=== PATIENT | female | born 1970 | race Caucasian/White ===

== ENCOUNTER 2025-05-10 11:56 | Emergency (ER) | payer OTHER, SELFPAY ==
[2025-05-10 11:57] VITALS: BP 171/102
[2025-05-10 12:37] VITALS: BP 138/96
--- NOTE | 2025-05-10 12:38 | ED.GENMED ---
History of Present Illness
<Erica Styles PA-C - Last Filed: 05/10/25 15:48>
General
Chief Complaint: Anxiety
Source: patient
Exam Limitations: none
Time Seen by Provider: 05/10/25 12:06
Nursing documentation reviewed up to this point in time: agreed with
History of Present Illness
History of Present Illness:
Patient is a 55-year-old female postmenopausal 3 years, history of anxiety and depression on Paxil and BuSpar for years presents for the feeling of jitteriness and anxiety over the last week. Patient says it came out of the blue and she is not
really sure what triggered the symptoms. She feels very uneasy and like she is 'shaking from the inside out.' Patient says when this began she thought maybe it could be related to vaping nicotine, so she did stop doing that about 5 days ago.
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 Patient had no significant suicidal thoughts or significant depression but was
feeling very anxious. They gave her IV fluids, IV nausea medication because patient had complained she was feeling like an upset stomach, and an oral Ativan. She says they checked her blood work but did not tell her that there were any
abnormalities. She did feel temporarily better but by the time she got home she had the same jittery feeling again. Her heart rate was never elevated to a significant rate that she knows of, she is not having any chest pain. She does feel
somewhat short of breath with the anxious feeling but does not have pleuritic pain. She has never had a DVT or PE.
Patient has tried calling her family doctor as well as multiple therapist or psychiatrist to get an appointment but was unable to do so until at least May. Patient says she cannot wait that long feeling this way. She also does use marijuana,
she has a medical card and vapes that. She is not sure if anything changed but she gets it from a dispensary and has never had any reactions before. She has not made any changes to her BuSpar or her Paxil.
Patient is not really eating, she is not sleeping because of all of this.
Review of Systems
<Erica Styles PA-C - Last Filed: 05/10/25 15:48>
Review of Systems
Allergies reviewed?: Yes
All Other Systems: Not applicable
Phy Exam
<Erica Styles PA-C - Last Filed: 05/10/25 15:48>
Physical Exam
Physical Exam:
GENERAL: Alert , visibly anxious
EYE: pupils equal and reactive
NECK: Supple
ENT: o/p clr, mmm.
CARDIAC: Regular rate and rhythm .no tachycardia
LUNGS: Clear breath sounds bilaterally, no acute respiratory distress, no wheezes/rales/rhonchi
ABDOMEN: Soft, without focal tenderness, no r/g, no cvat, normal bowel sounds
NEUROLOGICAL: Alert and oriented, no focal neuro deficits
SKIN: Warm and dry, skin intact.
MUSCULOSKELETAL: No edema, well perfused. neg kai's sign
PSYCH: Normal and appropriate interaction. anxious; no SI; not tearful
Course
<Erica Styles PA-C - Last Filed: 05/10/25 15:48>
Orders/Labs/Results
Orders:
Orders
05/10/25 12:27
0.9% Sodium Chloride 1000 ml [Nss] 1,000 ml IV BOLUS
Alprazolam [Xanax] 0.5 mg PO NOW STA
05/10/25 12:28
Electrocardiogram (*1) Urgent
Reason for Study: Palpitations
EKG- Treatment ONCE
05/10/25 12:30
Crisis Consult Urgent
Reason for Consult: anxiety
05/10/25 12:31
CPK [Creatine Phosphokinase] Urgent
Complete Blood Count/With Diff Urgent
Comprehensive Metabolic Panel Urgent
Lipase Urgent
Comment: ADD ON
TSH Reflex To Free T4 Urgent
05/10/25 14:21
Ondansetron Injectable [Zofran] 4 mg IV NOW STA
05/10/25 14:24
diazePAM [Valium Injection] 5 mg IV NOW STA
05/10/25 14:34
Add On- LAB Urgent
Tests Added?: LIPASE
Abnormal Lab Results
05/10/25
12:31
MCV 80.8 L fL
(81.0-99.0)
Glucose 113 H mg/dl
(70-99)
05/10/25 12:31
05/10/25 12:31
Vital Signs
Initial and Last Documented VS:
Initial Vital Signs
Temp Pulse Resp BP Pulse Ox
98.4 F 60 20 171/102 96
05/10/25 11:57 05/10/25 11:57 05/10/25 11:57 05/10/25 11:57 05/10/25 11:57
Last Documented Vital Signs
Temp Pulse Resp BP Pulse Ox
98.4 F 70 20 97/59 99
05/10/25 11:57 05/10/25 16:15 05/10/25 16:15 05/10/25 15:00 05/10/25 12:47
<Deedee Levi, DO - Last Filed: 05/10/25 20:23>
Orders/Labs/Results
Orders:
Orders
05/10/25 12:27
0.9% Sodium Chloride 1000 ml [Nss] 1,000 ml IV BOLUS
Alprazolam [Xanax] 0.5 mg PO NOW STA
05/10/25 12:28
Electrocardiogram (*1) Urgent
Reason for Study: Palpitations
EKG- Treatment ONCE
05/10/25 12:30
Crisis Consult Urgent
Reason for Consult: anxiety
05/10/25 12:31
CPK [Creatine Phosphokinase] Urgent
Complete Blood Count/With Diff Urgent
Comprehensive Metabolic Panel Urgent
Lipase Urgent
Comment: ADD ON
TSH Reflex To Free T4 Urgent
05/10/25 14:21
Ondansetron Injectable [Zofran] 4 mg IV NOW STA
05/10/25 14:24
diazePAM [Valium Injection] 5 mg IV NOW STA
05/10/25 14:34
Add On- LAB Urgent
Tests Added?: LIPASE
Abnormal Lab Results
05/10/25
12:31
MCV 80.8 L fL
(81.0-99.0)
Glucose 113 H mg/dl
(70-99)
05/10/25 12:31
05/10/25 12:31
Vital Signs
Initial and Last Documented VS:
Initial Vital Signs
Temp Pulse Resp BP Pulse Ox
98.4 F 60 20 171/102 96
05/10/25 11:57 05/10/25 11:57 05/10/25 11:57 05/10/25 11:57 05/10/25 11:57
Last Documented Vital Signs
Temp Pulse Resp BP Pulse Ox
98.4 F 70 20 97/59 99
05/10/25 11:57 05/10/25 16:15 05/10/25 16:15 05/10/25 15:00 05/10/25 12:47
<Erica Styles PA-C - Last Filed: 05/10/25 15:48>
MDM/Problems Addressed
Differential Diagnosis Includes:
anxiety, hyperthyroid. electrolylte disturbance, hormone imbalance
MDM/Problems Addressed:
55 y/o F
feeling of jitteriness, anxiety, nausea for 1 week
not eating well, not sleeping
[facility]
had iv nausea med and anxioliytic and said she didn't feel any better
has had ongoign sypmtoms all week
friend here with her and very concerned this is not her normal personality
pt has no SI
she is not having any obvious trigger for this
<Erica Styles PA-C - Last Filed: 05/10/25 15:48>
*Pulse Oximetry
SaO2: 96
Oxygen Mode of Delivery: Room air
ED Attending Note
<Erica Styles PA-C - Last Filed: 05/10/25 15:48>
-
Portions of this chart may have been created with voice recognition software.� Occasional wrong word or��sound alike� substitutions may have occurred due to the inherent limitations of voice recognition software.
<Deedee Levi DO - Last Filed: 05/10/25 20:23>
ED Attending Note
Patient seen and examined by attending physician: Yes
I performed the substantive portion of visit, reviewed & personally made and approve the management plan that is documented in note by myself or BRUNA.: Yes
I performed a history and physical exam of patient and discussed management with resident, I reviewed resident's note and agree with documented findings and plan of care.: Yes
ED Attending Note:
55-year-old female presents to the ER for further evaluation of frequent panic attacks since last Tuesday. She had brief symptomatic relief with Valium via IV. I discussed with her recent outpatient workup at another hospital and urgent care. I
discussed with her recommendation for close outpatient counseling to help manage her symptoms. 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 She also reports that she has been having significant heartburn and
palpitations. I discussed with her use of Pepcid twice daily until she is seen in [id number] states that she was recommended to take this last year but has not been taking this medication. I counseled patient on anticipated normal healing
course along with strict return precautions. I discussed with patient very reassuring workup here today. She feels comfortable with plan for discharge. Her son is also present bedside and had no questions at time of discharge.
Vital signs reviewed, patient is awake, alert, speaking easily in no acute distress, mucous membranes moist, conjunctiva pink, GCS is 15.
Will give small prescription Valium in addition to Pepcid.
late entyr:After patient left the department, her she called back to report that her pharmacy did not have Valium in stock. She had been given a written prescription which she tried to take to [facility] but they would not except. I spoke to the
pharmacist. I discussed with him plan for Valium. Prescription for Valium that had initially been transmitted was rescinded in the electronic medical record. New prescription was sent.
Discharge Plan
Departure
Patient Disposition: Home (Routine Discharge)
Date of Disposition: 05/10/25
Time of Disposition: 15:57
Patient with high blood pressure during this ER visit?: Yes
Discharge Problem:
Anxiety
Instructions: Anxiety, Adult (DC), Acid reflux and GERD in adults, BLOOD PRESSURE
Prescriptions:
New
diazepam [Valium] 2 mg tablet
2 mg PO TID PRN (Reason: anxiety) Qty: 10 0RF
Referrals:
UNKNOWN - PT NOT,INTERVIEWE [Unknown Provider]
Activity Restrictions/Additional Instructions:
YOUR SYPMTOMS DO NOT SEEM TO BE CAUSED BY A MEDICAL EMERGENCY
YOU COULD HAVE ANXIETY - AND SHOULD FOLLOW UP WITH GASTON BENITEZ
IF YOU HAVE SEVERE SYMPTOMS AGAIN, YOU CAN TRY A DOSE OF VALIUM
WE DO NOT PRESCRIBE THIS FOR CHRONIC SYMPTOMS
RETURN FOR PASSING OUT, CHEST PAIN, SHORTNESS OF BREATH, FEVER OR ANY CONCERNS.
Please also start using Pepcid 20 mg tablets as available [id number] twice daily until you are seen by your primary care physician
Interventions
Interventions:
*Risk Screen - Suicide Last Done: 05/10/25 11:57
*General Assessment Last Done: 05/10/25 11:57
*Neglect/Abuse Screening Last Done: 05/10/25 11:57
*ED- Fall Risk Assessment Last Done: 05/10/25 12:45
*ED COVID-19 Vaccine History Last Done: 05/10/25 12:45
*Nursing Disposition Last Done: 05/10/25 16:34
ED-Psychological Assessment Last Done: 05/10/25 13:15
Discharge Date and Time
Discharge Date/Time: 05/10/25 16:35
Print Language: PASHTO
[2025-05-10] MEDS: NSS 1000 IV (12:41)
[2025-05-10] MEDS: XANAX 0.5 MG PO (12:41)
[2025-05-10 12:46] LABS: Hematocrit 38.6 % (37.0-47.0); Hemoglobin 13.3 g/dL (12.0-16.0); Mean Corp Hgb Conc. 34.5 g/dL (33.0-37.0); Mean Corpuscular Volume 80.8 fL (81.0-99.0); Nucleated Red Blood Cells % 0 %; Platelet Count 352 10^3/uL (130-400); Red Cell Dist. Width 12.2 % (11.5-14.5)
[2025-05-10 12:47] VITALS: BP 138/96
[2025-05-10 13:00] VITALS: BP 153/97
[2025-05-10 13:05] LABS: ALT (SGPT) 16 U/L (0-35); AST (SGOT) 23 U/L (14-36); Albumin 5.0 g/dl (3.5-5.0); Alkaline Phosphatase 67 U/L (38-126); Blood Urea Nitrogen 11 mg/dl (7-17); Calcium 10.0 mg/dl (8.4-10.2); Carbon Dioxide 27 mmol/L (22-30); Chloride 103 mmol/L (98-107); Glucose 113 mg/dl (70-99); Potassium 4.3 mmol/L (3.5-5.1); Sodium 136 mmol/L (135-145); Total Protein 7.7 g/dl (6.3-8.2); eGFR > 60.00
[2025-05-10] MEDS: ZOFRAN 4 MG IV (14:59)
[2025-05-10 15:00] VITALS: BP 97/59
[2025-05-10] MEDS: VALIUM INJECTION 5 MG IV (15:00)
[2025-05-10 15:13] LABS: Lipase 98 U/L (23-300)
== END 2025-05-10 16:35 | disposition home or self-care (01) ==
LOC: EMR 11:56
PROVIDERS: Physician Assistant; EMERGENCY PHYSICIAN Emergency Medicine; FAMILY PHYSICIAN Family Medicine
DX: F41.9 Anxiety disorder, unspecified (principal); R03.0 Elevated blood-pressure reading, without diagnosis of hypertension; F32.A Depression, unspecified; Z87.891 Personal history of nicotine dependence; T47.0X6A Underdosing of histamine H2-receptor blockers, initial encounter; Z91.148 Patient's other noncompliance with medication regimen for other reason
CPT/HCPCS: 99284; 96374; 96375; 96361; 80053; 82550; 83690; 84443; 85025; 93005

== ENCOUNTER 2025-06-20 08:39 | Emergency (ER) | payer OTHER, SELFPAY ==
[2025-06-20 09:10] VITALS: BP 137/96
[2025-06-20 10:00] VITALS: BP 125/98
[2025-06-20] MEDS: ATIVAN 1 MG PO (10:03)
--- NOTE | 2025-06-20 10:11 | ED.GENMED ---
History of Present Illness
General
Chief Complaint: Anxiety
Time Seen by Provider: 06/20/25 09:19
History of Present Illness
History of Present Illness:
55-year-old female presents the emergency department for evaluation of worsening anxiety and tremulousness. She was seen in this emergency department approximately 6 weeks ago and referred for outpatient behavioral health resources, she has a
initial appointment with Rodolfo Flores in 1 week. States she had been feeling better, was started on hormone replacement therapy by her [employer] and felt well for approximately 2 weeks before again worsening. She discontinued the HRT and her primary
care physician increased dosages of her BuSpar and Paxil, she had been on both these medications for greater than 10 years. She is also using hydroxyzine frequently over the past 3 to 4 days due to increasing anxiety. Feels as though she cannot
function, denies SI or HI but states 'I just want it all to be over'. Denies any illicit substance use.
Review of Systems
Review of Systems
Allergies reviewed?: Yes
All Other Systems: ROS reviewed and negative except as documented in HPI and ROS
Phy Exam
Physical Exam
Physical Exam:
GEN: Well appearing, NAD, WDWN
HEENT: Oral mucosa moist, no scleral icterus
Cardiac: Regular rate
Lung: No respiratory distress, no tachypnea
MSK: No gross deformity or injuries
Skin: Good color, no pallor or jaundice, no rashes
Neuro: AO x3, moves all extremities freely
Psych: Visibly anxious and tremulous, unable to sit still
Course
Orders/Labs/Results
Orders:
Orders
06/20/25 09:41
Crisis Consult Urgent
Reason for Consult: depression/anxiety
06/20/25 09:51
Lorazepam [Ativan] 1 mg PO NOW STA
Vital Signs
Initial and Last Documented VS:
Initial Vital Signs
Temp Pulse Resp Pulse Ox
97.5 F 79 22 99
06/20/25 08:49 06/20/25 08:49 06/20/25 08:49 06/20/25 08:49
Last Documented Vital Signs
Temp Pulse Resp BP Pulse Ox
97.5 F 69 12 125/98 99
06/20/25 08:49 06/20/25 10:00 06/20/25 10:00 06/20/25 10:00 06/20/25 10:12
MDM/Problems Addressed
MDM/Problems Addressed:
55-year-old female presenting with worsening anxiety despite up titration of medications and addition of hydroxyzine. While the underlying cause is most likely uncontrolled generalized anxiety disorder, I did discuss the possibility of mild
serotonin syndrome given that she is on numerous offending agents. I have recommended that we increase her clonidine and decrease her BuSpar and Paxil as well as discontinue hydroxyzine. She was seen again by crisis but does not meet any inpatient
criteria. Will discharge to continued outpatient follow-up, no suicidality or homicidality.
*Pulse Oximetry
SaO2: 99
Oxygen Mode of Delivery: Room air
Patient hypoxic: no
*Critical Care Note
Total Time (30-74mins, 75-104mins- exclusive of procedures): Not Applicable
ED Attending Note
-
Portions of this chart may have been created with voice recognition software.� Occasional wrong word or��sound alike� substitutions may have occurred due to the inherent limitations of voice recognition software.
Discharge Plan
Departure
Patient Disposition: Home (Routine Discharge)
Date of Disposition: 06/20/25
Time of Disposition: 10:51
Patient with high blood pressure during this ER visit?: No
Discharge Problem:
Anxiety
Instructions: Generalized Anxiety Disorder (DC)
Prescriptions:
New
lorazepam 1 mg tablet
1 mg PO BID PRN (Reason: anxiety) Qty: 8 0RF
No Action
diazepam [Valium] 2 mg tablet
2 mg PO TID PRN (Reason: anxiety) Qty: 10 0RF
Referrals:
Jerad Dean CRNP [Family Provider, General]
Activity Restrictions/Additional Instructions:
Decrease your Buspar and Paxil doses to the prior dose you were taking
Stop using hydroxyzine
Use the lorazepam ONLY WHEN ABSOLUTELY NECESSARY
Increase your clonidine dosage to 0.2mg three times daily
Symptoms should improve within 48 hours
Interventions
Interventions:
*Risk Screen - Suicide Last Done: 06/20/25 08:49
*General Assessment Last Done: 06/20/25 08:49
*Neglect/Abuse Screening Last Done: 06/20/25 11:28
*ED COVID-19 Vaccine History Last Done: 06/20/25 08:49
*ED Influenza Vaccine History Last Done: 06/20/25 08:49
*Nursing Disposition Last Done: 06/20/25 11:28
ED-Psychological Assessment Last Done: 06/20/25 10:35
Discharge Date and Time
Discharge Date/Time: 06/20/25 11:29
Print Language: LATVIAN
== END 2025-06-20 11:29 | disposition home or self-care (01) ==
LOC: EMR 08:39
PROVIDERS: EMERGENCY PHYSICIAN Emergency Medicine; FAMILY PHYSICIAN Family Medicine
DX: F41.9 Anxiety disorder, unspecified (principal)
CPT/HCPCS: 99283